=== PATIENT | male | born 1950 | race Caucasian/White ===

== ENCOUNTER 2018-03-21 07:30 | Inpatient (IN) | payer OTHER ==
[~2018-03-21] VITALS: Ht 165.1 cm; Wt 90.7 kg
[2018-03-21] MEDS ORDERED: METROPROL PO (09:58)
[2018-03-21] MEDS ORDERED: ENALAPRIL MALEA10 MG PO (09:59)
[2018-03-21] MEDS ORDERED: ZOCOR PO (10:00)
[2018-03-28] MEDS ORDERED: ENALAPRIL MALEA10 MG PO (14:09)
[2018-03-28] MEDS ORDERED: TOPROL XL100 M1 PO (14:09)
[2018-03-28] MEDS ORDERED: SIMVASTATIN20 MG PO (14:10)
[2018-03-28] MEDS ORDERED: METOPROLOL SUC100 MG PO (14:10)
[2018-03-29] MEDS ORDERED: METOPROLOL TAR100 MG PO (08:45)
[2018-03-29] MEDS ORDERED: ZOCOR20 MG PO (08:45)
[2018-03-29] MEDS ORDERED: XARELTO10 MG PO (15:24)
[2018-03-29] MEDS ORDERED: DUI500 PO (15:24)
[2018-03-29] MEDS ORDERED: PERCOCET 5-3251 EACH PO (15:24)
== END 2018-03-29 17:39 | DRG 470 ==
LOC: O/R 03-27 06:15 → SURH 03-27 06:15
PROVIDERS: Orthopaedic Surgery
PROC: 0QNF0ZZ Release Left Patella, Open Approach (ICD-10-PCS; 2018-03-27)
PROC: 0SRD0J9 Replacement of Left Knee Joint with Synthetic Substitute, Cemented, Open Approach (ICD-10-PCS; principal; 2018-03-27 20:15)
DX: M17.12 Unilateral primary osteoarthritis, left knee (principal); D62 Acute posthemorrhagic anemia; M22.12 Recurrent subluxation of patella, left knee; I10 Essential (primary) hypertension; E66.01 Morbid (severe) obesity due to excess calories